=== PATIENT | female | born 1985 | race Hispanic/Latino ===

== ENCOUNTER 2019-02-19 04:51 | Emergency (ER) | payer OTHER ==
[~2019-02-19] VITALS: Ht 149.9 cm; Wt 50.8 kg
[2019-02-19 06:06] LABS: APPEARANCE,URINE Clear (CLEAR); BILIRUBIN,URINE Negative (NEGATIVE); COLOR,URINE Yellow (YELLOW); GLUCOSE, URINE (UA) Negative (NEGATIVE); KETONES,URINE Negative (NEGATIVE); LEUKOCYTE ESTERASE ,URINE Negative (NEGATIVE); NITRATE,URINE Negative (NEGATIVE); OCCULT BLOOD,URINE Negative (NEGATIVE); PH,URINE 6.5 (5.0-8.0); PROTEIN,URINE Negative (NEGATIVE); UROBILINOGEN,URINE 0.2 mg/dL (0.2-1.0)
[2019-02-19 06:10] LABS: HCG,QUAL RESULT NEGATIVE (NEGATIVE)
[2019-02-19 06:12] LABS: AMPHET/METH SCREEN,URINE NEGATIVE (NEGATIVE); BARBITURATE SCREEN, URINE NEGATIVE (NEGATIVE); BENZODIAZEPINES SCREEN,URINE NEGATIVE (NEGATIVE); CANNABINOID SCREEN,URINE NEGATIVE (NEGATIVE); COCAINE SCREEN,URINE NEGATIVE (NEGATIVE); OPIATE SCREEN,URINE NEGATIVE (NEGATIVE); PHENCYCLIDINE SCREEN,URINE NEGATIVE (NEGATIVE)
[2019-02-19] MEDS ORDERED: HYDROXYZINE HCL 25 MG TABLET PO SCH (06:45)
== END 2019-02-19 06:42 | disposition home or self-care (01) ==
LOC: EDH 04:51
DX: F43.9 Reaction to severe stress, unspecified (principal)
CPT/HCPCS: 80305; 81003; 81025